=== PATIENT | male | born 2000 | race Caucasian/White ===

== ENCOUNTER 2022-02-28 09:49 | Outpatient (CLI) | payer OTHER | END 2022-02-28 09:54 | disposition home or self-care (01) | LOC: LAB 09:49 | DX: Z03.818 Encounter for observation for suspected exposure to other biological agents ruled out (principal); Z20.828 Contact with and (suspected) exposure to other viral communicable diseases; Z20.822 Contact with and (suspected) exposure to COVID-19; Z11.52 Encounter for screening for COVID-19; Z86.16 Personal history of COVID-19 ==

== ENCOUNTER 2022-12-06 12:59 | Outpatient (CLI) | payer OTHER | END 2022-12-06 13:04 | disposition home or self-care (01) | LOC: LAB 12:59 | DX: Z20.822 Contact with and (suspected) exposure to COVID-19 (principal); Z20.89 Contact with and (suspected) exposure to other communicable diseases; Z20.828 Contact with and (suspected) exposure to other viral communicable diseases ==

== ENCOUNTER 2025-08-04 08:24 | Outpatient (CLI) | payer OTHER ==
[2025-08-04 09:33] LABS: URINE APPEARANCE Clear; URINE BILIRRUBIN Negative (NEGATIVE); URINE BLOOD Negative; URINE COLOR Dark Yellow; URINE GLUCOSE Negative (NEGATIVE); URINE KETONE Negative (NEGATIVE); URINE LEUKOCYTE Negative; URINE NITRATE Negative; URINE PROTEIN Trace (NEGATIVE); URINE UROBILINOGEN 1.0 E.U./dl
[2025-08-04 09:37] LABS: URINE BACTERIA 36.6 uL (0.0-1933); URINE EPITHELIAL CELLS 4.5 uL (0.0-38.8); URINE RBC 15.4 uL (0.0-20.8); URINE WBC 11.4 uL (0.0-23.2)
[2025-08-04 09:38] LABS: URINE CAST 0.99 uL (0.0-1.40)
[2025-08-04 09:40] LABS: BASO % 1.0 % (0.1-1.2); EOS # 0.36 (0.04-0.54); EOS % 5.8 % (0.7-7.0); LYMPH # 2.81 (1.18-3.74); LYMPH % 44.9 % (19.3-53.1); MEAN PLATELET VOLUME 10.20 fl (9.4-12.4); MONO # 0.48 (0.24-0.82); MONO % 7.7 % (4.7-12.5); NEUT # 2.54 (1.56-6.13); NEUT % 40.4 % (34.0-71.1); RED CELL DISTRIBUTION WIDTH 11.6 % (11.6-14.4)
[2025-08-04 10:54] LABS: ALT/SGPT 20 U/L (12-78); AST/SGOT 10 U/L (15-37); BILIRUBIN TOTAL 1.48 mg/dL (0.3-1.2); BUN CREA RATIO 12 (7.0-25.0); CHOL HDL RATIO 2.8 (0-5.0); CREATININE SERUM 0.81 mg/dL (0.70-1.30); FREE TRIODOTIRONINE 3.73 pg/ml (2.18-3.98); GFR 117.07; GLOBULINA 3.0 G/DL (2.4-3.5); GLUCOSE FASTING 86 mg/dL (65-100); HDL 57 mg/dl (40-60); LDL 91 mg/dl (0-130); OSMOLALITY SERUM 281 MOSM/KG (275-295); T4 FREE 1.24 NG/ML (0.76-1.46); T4 TOTAL 10.43 UG/DL (4.5-12.1); TSH 2.570 uIU/mL (0.358-3.74); VLDL 10 (0-39)
[2025-08-04 12:56] LABS: CORTISOL 13.4 ug/dl; T3 TOTAL 1.56 ng/ml (0.846-2.02); VITAMIN D3 25 HYDROXY 16.55 ng/ml (30-120)
[2025-08-05 10:11] LABS: DHEA-SULFATE 257.0 ug/dL (164.3-530.5); HOMOCYSTEINE 9.8 umol/L (0.0-14.5); INSULIN LEVELS 3.4 uIU/mL (2.6-24.9)
== END 2025-08-04 08:35 | disposition home or self-care (01) ==
LOC: LAB 08:24
DX: E03.9 Hypothyroidism, unspecified (principal); E88.810 Metabolic syndrome; E55.9 Vitamin D deficiency, unspecified; E66.9 Obesity, unspecified; Z13.1 Encounter for screening for diabetes mellitus; N50.89 Other specified disorders of the male genital organs